=== PATIENT | male | born 2000 | race Caucasian/White ===

== ENCOUNTER 2022-05-08 20:11 | Emergency (ER) | payer OTHER ==
[2022-05-08 20:27] VITALS: RESP 20
[2022-05-08] MEDS ORDERED: KETOROLAC 15 MG/ML 1 ML VIAL IM STA (21:10)
--- NOTE | 2022-05-08 21:23 | XR ---
EXAMINATION TYPE: XR hand complete bilateral DATE OF EXAM: 05/08/2022 8:44 PM INDICATION: Patient age:Male; 22 years old; Reason for study: pain; COMPARISON: None TECHNIQUE: Frontal, lateral and oblique views of the bilateral hands were obtained. FINDINGS: Acute intra-articular fracture of the base of the right fifth metacarpal. No additional fractures mikala ntified involving the right hand. Soft tissue swelling is present. Left hand demonstrates fracture seen on one view only. This is suspected to involve the hamate. Soft tissue swelling is present. IMPRESSION: 1. Intra-articular fracture of the base of the right fifth metacarpal. 2. Suspected left hamate fracture near the articulation with the fifth metacarpal. Correlate with po int tenderness.
--- NOTE | 2022-05-08 22:06 | ED ---
General Adult HPI - General Chief complaint: Extremity Injury, Upper Stated complaint: Rt hand Injury Time Seen by Provider: 05/08/22 21:02 Source: patient Mode of arrival: ambulatory Limitations: no limitations - History of Present Illness Initial comments: This is a 22-year-old male who presents emergency department for bilateral hand pain after he punched a door. The patient stated that he had pain on the lateral aspect of the right hand consistent which she thought was a boxer's fracture. The patient stated he also had some minor discomfort in the left hand however stated that he did not have any point tenderness or discomfort there. The patient was resting in the company pain denied any other trauma. The patient denied any lightheadedness or dizziness and denied hitting his head or losing consciousness. The patient remained stable without any further acute complaints. - Related Data Allergies Allergy/AdvReac Type Severity Reaction Status Date / Time No Known Allergies Allergy Verified 05/08/22 20:27 Review of Systems ROS Statement: Those systems with pertinent positive or pertinent negative responses have been documented in the HPI. ROS Other: All systems not noted in ROS Statement are negative. Past Medical History Past Medical History: No Reported History History of Any Multi-Drug Resistant Organisms: None Reported Past Surgical History: No Surgical Hx Reported Past Psychological History: No Psychological Hx Reported Smoking Status: Current every day smoker Past Alcohol Use History: None Reported Past Drug Use History: Methamphetamine General Exam Limitations: no limitations General appearance: alert, in no apparent distress Head exam: Present: atraumatic, normocephalic, normal inspection Eye exam: Present: normal appearance, PERRL Pupils: Present: normal accommodation ENT exam: Present: normal exam, normal oropharynx, mucous membranes moist Neck exam: Present: normal inspection, full ROM Respiratory exam: Present: normal lung sounds bilaterally Cardiovascular Exam: Present: regular rate, normal rhythm, normal heart sounds GI/Abdominal exam: Present: soft, normal bowel sounds Extremities exam: Present: normal inspection, full ROM, tenderness (Tenderness noted over the base of the right lateral dorsal hand, no acute tenderness noted over the left hand or wrist), normal capillary refill Back exam: Present: normal inspection, full ROM Neurological exam: Present: alert, oriented X3, CN II-XII intact Psychiatric exam: Present: normal affect, normal mood Skin exam: Present: warm, dry Course Vital Signs 12/26/22 12/26/22 20:25 22:30 Temperature 98 F 98.2 F Pulse Rate 104 H 92 Respiratory 20 20 Rate Blood Pressure 157/107 140/62 O2 Sat by Pulse 98 97 Oximetry Procedures - Orthopedic Splinting/Casting Injury #1 Side: right Upper Extremity Injury Location: hand Upper Extremity Immobilizer: volar splint Medical Decision Making - Medical Decision Making Was pt. sent in by a medical professional or institution? @ -No Did you speak to anyone other than the patient for history? @ -No Did you review nursing and triage notes? @ -Nursing triage notes were reviewed Were old charts reviewed? @ -Outside records from [facility] were reviewed Differential Diagnosis? @ -Soft tissue contusion, hand sprain, hand fracture EKG interpreted by me (3pts min.)? @ -[none] X-rays interpreted by me (1pt min.)? @ -X-rays of the bilateral hands were obtained and were interpreted by myself. X-ray showed intra-articular fracture at the base of the right fifth metacarpal. There was a suspected left hamate fracture near the articulation with the fifth metacarpal. The patient however denied any point tenderness over this area CT interpreted by me (1pt min.)? @ -[none] U/S interpreted by me (1pt. min.)? @ -[none] What testing was considered but not performed? (CT, X-rays, U/S, labs)? Why? @ None What meds were considered but not given? Why? @ -[none] Did you discuss the management of the patient with other professionals? @ -No Did you reconcile home meds? @ -[none] Was smoking cessation discussed for >3mins.? @ -Yes Was critical care preformed (if so, how long)? @ -[none] Were there social determinants of health that impacted care today? How? (Homelessness, low income, unemployed, alcoholism, drug addiction, transportation, low edu. Level, literacy, decrease access to med. care, custodial, rehab)? @ -Low literacy, polysubstance abuse, resident at [facility] Was there de-escalation of care discussed even if they declined? (Discuss DNR or withdrawal of care, Hospice)? @ -No What co-morbidities impacted this encounter? (DM, HTN, Smoking, COPD, CAD, Cancer, CVA, Hep., AIDS, mental health diagnosis, sleep apnea, morbid obesity)? @ -None Was patient admitted / discharged? @ -The patient was seen and evaluated emergency department. Physical exam, the patient was resting in bed without any acute distress. Vital signs were stable. X-rays were obtained of the bilateral hands showing a boxer's fracture over the right hand. The patient was placed in a volar splint over the right hand and the left hand did not show any acute signs of point tenderness therefore was not splinted at this time. The patient was advised to follow-up with the hand surgeon for further workup and evaluation and to report back to the emergency department if his symptoms became acutely worse. The patient was agreeable to this and all his questions were answered appropriate. The patient was discharged back to [facility] in stable condition. Undiagnosed new problem with uncertain prognosis? @ -[none] Drug Therapy requiring intensive monitoring for toxicity (Heparin, Nitro, Insulin, Cardizem)? @ -[none] Were any procedures done? @ -[none] Diagnosis/symptom? @ -Right boxer's fracture, left hand sprain Acute, or Chronic, or Acute on Chronic? @ -Acute Uncomplicated (without systemic symptoms) or Complicated (systemic symptoms)? @ -Uncomplicated Side effects of treatment? @ -[none] Exacerbation, Progression, or Severe Exacerbation] @ -[no] Poses a threat to life or bodily function? @ -[no] Disposition Clinical Impression: Closed boxer's fracture, Sprain of left hand Disposition: HOME SELF-CARE Condition: Stable Instructions (If sedation given, give patient instructions): Hand Sprain (ED), Boxer Fracture (ED) Is patient prescribed a controlled substance at d/c from ED?: No Referrals: None,Stated [Primary Care Provider] - 1-2 days Philly Grijalva DO [Doctor of Osteopathic Medicine] - 1-2 days Time of Disposition: 22:00
[2022-05-08 22:31] VITALS: BP 140/62; PULSE 92; TEMP 98.2
== END 2022-05-08 22:30 | disposition home or self-care (01) ==
LOC: EC 20:11
DX: S62.307A Unspecified fracture of fifth metacarpal bone, left hand, initial encounter for closed fracture (principal); S63.92XA Sprain of unspecified part of left wrist and hand, initial encounter; F17.200 Nicotine dependence, unspecified, uncomplicated; W22.8XXA Striking against or struck by other objects, initial encounter
CPT/HCPCS: 73130; 99283; 96372; J1885